=== PATIENT | male | born 1985 | race African-American/Black ===

== ENCOUNTER → 2021-01-26 | Outpatient (CLI) | payer OTHER ==
--- NOTE | 2021-01-26 15:48 | RAD ---
XR FINGER(S)_LEFT 2+VIEWS_RT, XR HAND_LEFT 3 VIEWS History: Reason: PAIN / Spl. Instructions: / History: Comparison: None. Technique: 3 views left hand. Three-view series of the left thumb including an wide [id number] AP view of the left hand. Findings: Osseous mineralization is normal. No fracture or dislocation. No significant degenerative changes. No aggressive osseous erosive process. Soft tissues are unremarkable. Impression: 1. Unremarkable left hand and thumb. Electronically signed by: Juan Antonio Alberto MD (01/26/2021 3:45 PM) [facility]
--- NOTE | 2021-01-26 15:48 | RAD ---
XR FINGER(S)_LEFT 2+VIEWS_RT, XR HAND_LEFT 3 VIEWS History: Reason: PAIN / Spl. Instructions: / History: Comparison: None. Technique: 3 views left hand. Three-view series of the left thumb including an wide [id number] AP view of the left hand. Findings: Osseous mineralization is normal. No fracture or dislocation. No significant degenerative changes. No aggressive osseous erosive process. Soft tissues are unremarkable. Impression: 1. Unremarkable left hand and thumb. Electronically signed by: Juan Antonio Alberto MD (01/26/2021 3:45 PM) [facility]
== END ==
LOC: DXRAD 09:07
PROVIDERS: ATTEND Nurse Practitioner Family
DX: M79.642 Pain in left hand (principal); M79.645 Pain in left finger(s)
CPT/HCPCS: 73130; 73140